=== PATIENT | female | born 1970 | race Caucasian/White ===

== ENCOUNTER → 2016-08-03 | Outpatient (CLI) | payer BC | END | disposition disaster alternative care site (69) | LOC: GRAD 14:17 | DX: M25.561 Pain in right knee (principal); M23.203 Derangement of unspecified medial meniscus due to old tear or injury, right knee; M25.461 Effusion, right knee; R60.0 Localized edema ==

== ENCOUNTER → 2016-12-08 | Outpatient (CLI) | payer BC ==
[~2016-12-08] MED LIST: BENADRYL25 MG PO; CLIMARA 0.0.1 MG/PAT TOP
== END ==
LOC: GKIC 14:17
DX: M76.821 Posterior tibial tendinitis, right leg (principal); M25.571 Pain in right ankle and joints of right foot

== ENCOUNTER → 2017-01-05 | Outpatient (CLI) | payer BC | LOC: GBCOE 06:55 | DX: Z12.31 Encounter for screening mammogram for malignant neoplasm of breast (principal) | CPT/HCPCS: G0202 ==